=== PATIENT | male | born 1940 | race Caucasian/White ===

== ENCOUNTER 2022-06-02 15:31 | Outpatient (CLI) | payer MEDICARE, BC, SELFPAY ==
[2022-06-02 21:45] LABS: Basophils Absolute Auto 0.05 K/uL (0.00-0.30); Basophils Percent Auto 0.8 % (0.0-3.0); Eosinophils Absolute Auto 0.23 K/uL (0.00-0.50); Eosinophils Percent Auto 3.5 % (0.0-7.0); Hematocrit 45.2 % (37.0-53.0); Hemoglobin* 15.3 gm/dL (13.5-17.5); Immature Granulocytes Abs Auto 0.01 K/uL (0.00-0.30); Immature Granulocytes Pct Auto 0.2 %; Lymphocytes Absolute Auto 2.05 K/uL (0.90-2.90); Mean Corpuscular HGB Conc 34 gm/dL (32-36); Mean Corpuscular Hemoglobin 31 pg (26-34); Mean Corpuscular Volume 91 fL (80-100); Monocytes Percent Auto 6.2 % (0.0-11.0); Neutrophils Absolute Auto 3.86 K/uL (1.7-7.0); Neutrophils Percent Auto 58.3 % (42.0-72.0); Platelet Count* 192 K/uL (140-440); RDW Coefficient of Variation % 12.8 % (11.5-15.5); Red Blood Count 4.99 m/uL (4.30-5.90); White Blood Count* 6.61 K/uL (4.50-11.00)
[2022-06-02 21:54] LABS: Slide Review Reflex No
[2022-06-02 22:03] LABS: Chloride* 109 mmol/L (96-114)
[2022-06-02 22:04] LABS: Potassium* 4.6 mmol/L (3.6-5.1); Sodium* 140 mmol/L (135-149)
[2022-06-02 22:07] LABS: Blood Urea Nitrogen* 19 mg/dL (7-30); Carbon Dioxide* 22 mmol/L (20-32); Creatinine* 1.2 mg/dL (0.5-1.5); Estimated Glomerular Filt Rate 61 ml/min; Glucose* 104 mg/dL (60-115)
== END 2022-06-02 15:32 | disposition home or self-care (01) ==
PROVIDERS: PCP Nurse Practitioner Family; Visit Provider Nurse Practitioner Family
DX: R06.00 Dyspnea, unspecified (principal)
CPT/HCPCS: 80048; 85025

== ENCOUNTER 2022-07-25 10:08 | Outpatient (CLI) | payer MEDICARE, BC, SELFPAY ==
[2022-07-25 14:00] LABS: Basophils Absolute Auto 0.05 K/uL (0.00-0.30); Basophils Percent Auto 0.7 % (0.0-3.0); Eosinophils Absolute Auto 0.26 K/uL (0.00-0.50); Eosinophils Percent Auto 3.4 % (0.0-7.0); Hematocrit 45.4 % (37.0-53.0); Hemoglobin* 15.5 gm/dL (13.5-17.5); Immature Granulocytes Abs Auto 0.02 K/uL (0.00-0.30); Immature Granulocytes Pct Auto 0.3 %; Lymphocytes Absolute Auto 1.64 K/uL (0.90-2.90); Lymphocytes Percent Auto 21.3 % (20-44); Mean Corpuscular HGB Conc 34 gm/dL (32-36); Mean Corpuscular Hemoglobin 31 pg (26-34); Mean Corpuscular Volume 89 fL (80-100); Monocytes Percent Auto 5.3 % (0.0-11.0); Neutrophils Absolute Auto 5.31 K/uL (1.7-7.0); Platelet Count* 182 K/uL (140-440); RDW Coefficient of Variation % 12.7 % (11.5-15.5); Red Blood Count 5.09 m/uL (4.30-5.90); White Blood Count* 7.69 K/uL (4.50-11.00)
[2022-07-25 14:12] LABS: Slide Review Reflex No
== END 2022-07-25 10:09 | disposition home or self-care (01) ==
LOC: KYNREF 10:12
PROVIDERS: PCP Nurse Practitioner Family; Visit Provider Nurse Practitioner Family
DX: R05.3 Chronic cough (principal); R06.2 Wheezing; R07.81 Pleurodynia
CPT/HCPCS: 85025

== ENCOUNTER 2022-08-02 08:37 | Outpatient (CLI) | payer MEDICARE, BC, SELFPAY ==
--- NOTE | 2022-08-02 09:00 | CRLHL7_ITS ---
For Patients: As a result of the Century Cures Act, medical imaging exams and procedure reports are released immediately into your electronic medical record. You may view this report before your referring provider. If you have questions, please contact your health care provider. Indication: WHEEZING, CHRONIC COUGH, RIB PAIN RIGHT SIDE Technique: Noncontrast CT chest Please note that all CT scans at this facility use dose modulation, iterative reconstruction, and/or weight-based dosing when appropriate to reduce radiation dose to as low as reasonably achievable. Comparison: Radiographs 07/25/2022, 06/02/2022 Findings: Old left 11th rib fracture. Calcified stones in the gallbladder. Atherosclerotic disease. Cardiomegaly. Ectatic thoracic aorta. Ascending aorta measures up to 4.7 cm. Coronary artery calcifications. No mediastinal, hilar or axillary adenopathy. 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 Moderate chronic compression deformity T4. Linear subsegmental atelectasis/scarring in the left lower lobe and lingula. A 9.7 millimeter nodule right lower lobe, 3/48. 7 millimeter nodule right upper lobe, 3/47. 9 millimeter nodule in right upper lobe 3/49. Impression: Three right-sided pulmonary nodules measuring up to 9.7 [address]imeters. Follow-up CT [address] PET recommended. 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 No CHF. Mild areas of atelectasis/scarring bilaterally. Cholelithiasis. No right-sided rib fracture. Please note that all CT scans at this facility use dose modulation, iterative reconstruction, and/or weight-based dosing when appropriate to reduce radiation dose to as low as reasonably achievable. Dictated by Prashant Quitnero MD @ 08/02/2022 10:08:59 AM (Electronically Signed)
== END 2022-08-02 08:38 | disposition home or self-care (01) ==
LOC: CT 08:38
PROVIDERS: PCP Nurse Practitioner Family; Visit Provider Nurse Practitioner Family
DX: R06.2 Wheezing (principal); R91.8 Other nonspecific abnormal finding of lung field; I71.21 Aneurysm of the ascending aorta, without rupture; K80.20 Calculus of gallbladder without cholecystitis without obstruction; R05.3 Chronic cough; R07.81 Pleurodynia; R06.00 Dyspnea, unspecified
CPT/HCPCS: 71250

== ENCOUNTER 2023-03-13 08:39 | Outpatient (CLI) | payer MEDICARE, BC, SELFPAY ==
--- NOTE | 2023-03-13 08:01 | W.ANESCHARGE ---
Anesthesia Charges Start Date/Time Anesthesia Start Date: 03/13/23 Anesthesia Start Time: 10:18 Stop Date/Time Anesthesia Stop Date: 03/13/23 Anesthesia Stop Time: 10:35 Summary Extremes of Age - Over 70 or under 1: MDA
--- NOTE | 2023-03-13 14:54 | W.ANESCHARGE ---
Anesthesia Charges Start Date/Time Anesthesia Start Date: 03/13/23 Anesthesia Start Time: 10:18 Stop Date/Time Anesthesia Stop Date: 03/13/23 Anesthesia Stop Time: 10:35 Summary Extremes of Age - Over 70 or under 1: [employer]
== END 2023-03-13 08:40 | disposition home or self-care (01) ==
LOC: OP CLINIC 08:40
PROVIDERS: PCP Nurse Practitioner Family; Visit Provider Surgery
DX: K22.70 Barrett's esophagus without dysplasia (principal); K22.89 Other specified disease of esophagus
CPT/HCPCS: 00731; 43239; 88305; 99100; J2704

== ENCOUNTER 2023-10-05 11:36 | Outpatient (CLI) | payer MEDICARE, BC, SELFPAY ==
[2023-10-05 15:00] LABS: Strep A DNA Probe* NOT DETECTED (Not Detectd)
== END 2023-10-05 11:37 | disposition home or self-care (01) ==
LOC: KYNREF 11:37
PROVIDERS: PCP Nurse Practitioner Family; Visit Provider Nurse Practitioner Family
DX: J02.9 Acute pharyngitis, unspecified (principal)
CPT/HCPCS: 87651

== ENCOUNTER 2023-12-19 09:14 | Outpatient (CLI) | payer MEDICARE, BC, SELFPAY | END 2023-12-19 09:15 | disposition home or self-care (01) | PROVIDERS: PCP Nurse Practitioner Family; Visit Provider Nurse Practitioner Family | DX: E78.5 Hyperlipidemia, unspecified (principal); Z13.228 Encounter for screening for other metabolic disorders; Z13.0 Encounter for screening for diseases of the blood and blood-forming organs and certain disorders involving the immune mechanism | CPT/HCPCS: 80053; 80061; 85025 ==

== ENCOUNTER 2024-04-09 14:05 | Outpatient (CLI) | payer MEDICARE, BC, SELFPAY | END 2024-04-09 14:06 | disposition home or self-care (01) | LOC: LAB 14:06 | PROVIDERS: PCP Nurse Practitioner Family; Visit Provider Physician Assistant | DX: G25.0 Essential tremor (principal); Z79.899 Other long term (current) drug therapy | CPT/HCPCS: 36415; 80171 ==

== ENCOUNTER 2024-07-29 13:17 | Outpatient (CLI) | payer MEDICARE, BC, SELFPAY | END 2024-07-29 13:18 | disposition home or self-care (01) | PROVIDERS: PCP Nurse Practitioner Family; Visit Provider Nurse Practitioner Family | DX: E78.5 Hyperlipidemia, unspecified (principal); Z13.0 Encounter for screening for diseases of the blood and blood-forming organs and certain disorders involving the immune mechanism | CPT/HCPCS: 80053; 85025 ==

== ENCOUNTER 2025-03-14 11:05 | Outpatient (CLI) | payer MEDICARE, BC, SELFPAY | END 2025-03-14 11:06 | disposition home or self-care (01) | LOC: NFLDREF 03-18 03:53 | PROVIDERS: PCP Nurse Practitioner Family; Referring Provider Nurse Practitioner Family; Visit Provider Nurse Practitioner Family | DX: E78.5 Hyperlipidemia, unspecified (principal); Z13.228 Encounter for screening for other metabolic disorders; Z13.0 Encounter for screening for diseases of the blood and blood-forming organs and certain disorders involving the immune mechanism | CPT/HCPCS: 80053; 80061; 85025 ==

== ENCOUNTER 2025-03-14 11:12 | Outpatient (CLI) | payer MEDICARE, BC, SELFPAY | END 2025-03-14 11:13 | disposition home or self-care (01) | LOC: NPINS 11:14 | PROVIDERS: PCP Nurse Practitioner Family; Visit Provider Physician Assistant | DX: E78.5 Hyperlipidemia, unspecified (principal); Z13.228 Encounter for screening for other metabolic disorders; Z13.0 Encounter for screening for diseases of the blood and blood-forming organs and certain disorders involving the immune mechanism | CPT/HCPCS: 80171 ==